=== PATIENT | male | born 1975 | race Two or more races ===

== ENCOUNTER 2019-02-15 19:38 | Inpatient (IN) | payer OTHER ==
[~2019-02-15] VITALS: Ht 185.4 cm; Wt 123.5 kg
[2019-02-15 20:00] LABS: Basophils # (auto) 0.2 uL; Eosinophils # (auto) 0.3 uL; Eosinophils % (auto) 1.7 % (0.0-7.0); Hematocrit 49.1 % (41.0-53.0); Hemoglobin 16.8 g/dL (13.5-17.5); Lymphocytes # (auto) 2.3 uL; Lymphocytes % (auto) 12.9 % (10.0-50.0); Mean Corpuscular Hgb Conc. 34.2 g/dL (32.0-36.0); Mean Corpuscular Volume 87.7 fL (80.0-100.0); Monocytes # (auto) 1.1 uL; Monocytes % (auto) 6.4 % (0.0-12.0); Neutrophils # (auto) 13.7 uL; Nucleated Red Blood Cells % 0.1 %; Platelet Count (auto) 260 10^3/uL (140-450); Red Blood Cells 5.59 10^6/uL (4.5-5.90); Red Cell Distribution Width 12.7 % (11.8-14.3); White Blood Cell 17.5 10^3/uL (4.4-10.8)
[2019-02-15 20:19] LABS: Albumin 3.1 g/dL (3.4-5.0); Calcium 8.4 mg/dL (8.5-10.1); Potassium 4.1 mmol/L (3.5-5.1)
[2019-02-15 20:22] LABS: BUN/Creatinine Ratio 10.5; Bilirubin, Total 1.2 mg/dL (0.2-1.0); Total Protein 7.1 g/dL (6.4-8.2)
[2019-02-15] MEDS ORDERED: cefTRIAXone SOD 1,000 MG VL IM ONE (23:00)
[2019-02-15] MEDS ORDERED: KETOROLAC TROMETH 60MG/2ML VIAL IM ONE (23:00)
[2019-02-16] MEDS ORDERED: SODIUM CHLORIDE 0.9% 1,000 ML IV ONE (00:15)
[2019-02-16] MEDS ORDERED: KETOROLAC TROMETH 30 MG/ML 1ML VIAL IV ONE (00:15)
[2019-02-16] MEDS ORDERED: cefTRIAXone 1GM/50ML D5W 50 ML IV ONE (00:15)
[2019-02-16] MEDS ORDERED: MORPHINE SULFATE 4 MG/ML SYR/VIAL IV ONE (01:00)
[2019-02-16] MEDS ORDERED: IOHEXOL 300 MG/ML 100ML BOTTLE IJ ONE (01:14)
[2019-02-16] MEDS ORDERED: ONDANSETRON HCL 4 MG/2 ML VIAL IV PRN (03:30)
[2019-02-16] MEDS ORDERED: ACETAMINOPHEN 325 MG TAB PO PRN (03:30)
[2019-02-16] MEDS ORDERED: DEXTROSE (50%) 50ML SYRG IV PRN ×2 (03:30→10:00)
[2019-02-16] MEDS ORDERED: DOCUSATE SOD 100 MG CAP PO PRN (03:30)
[2019-02-16] MEDS ORDERED: LORazepam 0.5 MG TAB PO PRN (03:30)
[2019-02-16] MEDS ORDERED: MORPHINE SULFATE 4 MG/ML SYR/VIAL IV PRN (03:30)
[2019-02-16 04:05] VITALS: BP 133/89
[2019-02-16] MEDS: ACCU-CHEK COMFORT CURVE STRIP VI SCH ×5 (04:33→21:47)
[2019-02-16] MEDS: InsuLIN REG 1unit/0.01ml Soln (100units/ml) SC SCH ×5 (04:49→21:52)
[2019-02-16] MEDS: CLINDAMYCIN 600MG IV 50 ML IV SCH ×4 (04:54→23:54)
[2019-02-16] MEDS: HYDROcodone-ACET 5/325MG TAB PO PRN ×4 (04:58→21:52)
[2019-02-16 05:00] VITALS: BP_SYST 113; BP_SYST 133; BP_SYST 134; BP_DIAS 50; BP_DIAS 74; BP_DIAS 89
--- NOTE | 2019-02-16 05:04 | NUR ---
MS admit from ER LLOYD,JULIA MCCLELLAN admitted to tele/MS after SBAR received. Patient oriented to KANDY COOMBS, RN primary RN, unit, room, bed, and unit policies regarding patient care and visiting hours. Patient weighed by bedscale and encouraged to call if they need something. All questions and concerns addressed, patient verbalized understanding. Note: PATIENT IS ALERT AND ORIENTED X4, C/O BACK PAIN DUE TO DEVELOPING ABSCESS ON MID BACK. PATIENT HAS A BUMP ON MIDBACK THAT IS NOT OPEN YET, UNABLE TO SEND WOUND CULTURE. PATIENT WITH PNDING SURGICAL CONSULT FOR I & D.
--- NOTE | 2019-02-16 07:32 | NUR ---
Opening Note Assumed pt care from NOC nurse Pt is a/ox4 with no s/s of distress or SOB. Pt is currently laying in bed with no complaints at this time. Assessed pt's back; abscess noted on pt's right upper shoulder blade. No drainage noted, and site is warm to touch and pink in color. Discussed POC with pt and the pending surgical consultation for drainage; pt verbalized understanding. Safety measures maintained with call light within reach, bed in lowest position and side rails up. Will continue to monitor for changes q1hr and prn.
[2019-02-16 07:48] LABS: Basophils # (auto) 0.1 uL; Basophils % (auto) 0.6 % (0.0-2.0); Eosinophils # (auto) 0.3 uL; Eosinophils % (auto) 1.6 % (0.0-7.0); Hematocrit 45.1 % (41.0-53.0); Hemoglobin 15.5 g/dL (13.5-17.5); Lymphocytes # (auto) 1.9 uL; Lymphocytes % (auto) 11.1 % (10.0-50.0); Mean Corpuscular Hemoglobin 30.1 pg (28.0-32.0); Mean Corpuscular Hgb Conc. 34.4 g/dL (32.0-36.0); Mean Corpuscular Volume 87.6 fL (80.0-100.0); Monocytes # (auto) 1.3 uL; Monocytes % (auto) 7.3 % (0.0-12.0); Neutrophils # (auto) 13.7 uL; Neutrophils % (auto) 79.4 % (37.0-80.0); Platelet Count (auto) 237 10^3/uL (140-450); Red Blood Cells 5.15 10^6/uL (4.5-5.90); White Blood Cell 17.2 10^3/uL (4.4-10.8)
[2019-02-16 08:10] LABS: BUN/Creatinine Ratio 14.1; Calcium 7.8 mg/dL (8.5-10.1); Potassium 3.7 mmol/L (3.5-5.1)
[2019-02-16 09:28] VITALS: BP 122/57
--- NOTE | 2019-02-16 09:46 | NUR ---
DR WATKINS AT BEDSIDE MD TO SEE PT
[2019-02-16] MEDS ORDERED: metFORMIN HYDROCHLORIDE 500 MG TAB PO ONE (10:00)
--- NOTE | 2019-02-16 10:11 | NUR ---
Wound Culture Sent to Micro
[2019-02-16 14:11] VITALS: BP 131/69
[2019-02-16 16:39] VITALS: BP 125/66
[2019-02-16] MEDS: metFORMIN HYDROCHLORIDE 500 MG TAB PO SCH (17:19)
[2019-02-16 22:19] VITALS: BP 108/61
[2019-02-17 05:46] VITALS: BP 101/60
[2019-02-17] MEDS: CLINDAMYCIN 600MG IV 50 ML IV SCH ×2 (05:54→13:08)
[2019-02-17 06:23] LABS: Basophils # (auto) 0 uL; Basophils % (auto) 0.3 % (0.0-2.0); Eosinophils # (auto) 0.3 uL; Eosinophils % (auto) 2.3 % (0.0-7.0); Hematocrit 46.2 % (41.0-53.0); Hemoglobin 15.8 g/dL (13.5-17.5); Lymphocytes # (auto) 1.8 uL; Lymphocytes % (auto) 12.6 % (10.0-50.0); Mean Corpuscular Hemoglobin 29.9 pg (28.0-32.0); Mean Corpuscular Hgb Conc. 34.1 g/dL (32.0-36.0); Mean Corpuscular Volume 87.7 fL (80.0-100.0); Monocytes # (auto) 0.8 uL; Monocytes % (auto) 5.5 % (0.0-12.0); Neutrophils # (auto) 11.4 uL; Neutrophils % (auto) 79.3 % (37.0-80.0); Platelet Count (auto) 286 10^3/uL (140-450); Red Blood Cells 5.27 10^6/uL (4.5-5.90); White Blood Cell 14.5 10^3/uL (4.4-10.8)
[2019-02-17 06:25] LABS: INR 1.12 (0.9-1.15)
[2019-02-17] MEDS: ACCU-CHEK COMFORT CURVE STRIP VI SCH ×2 (06:29→11:30)
[2019-02-17] MEDS: InsuLIN REG 1unit/0.01ml Soln (100units/ml) SC SCH ×2 (06:29→12:28)
[2019-02-17 06:31] LABS: Calcium 8.1 mg/dL (8.5-10.1); Potassium 3.9 mmol/L (3.5-5.1)
[2019-02-17 06:33] LABS: BUN/Creatinine Ratio 17.5
[2019-02-17 08:00] VITALS: BP 109/65
--- NOTE | 2019-02-17 08:55 | NUR ---
ASSUMED CARE OF PT JUST WAKING. APPROPRIATE, DENIES DISCOMFORT. LARGE BOIL TYPE AREA MIDLINE ABOVE SHOULDER BLADES PALPATED HARD TO TOUCH CENTER OOZING SMALL AMOUNT. WHITE BOARD UPDATED. IV SITE BENIGN AND PATENT.
[2019-02-17] MEDS ORDERED: cefTRIAXone 1GM/50ML D5W 50 ML IV SCH (09:00)
--- NOTE | 2019-02-17 09:45 | NUR ---
DR. SCHMIDT AT BEDSIDE. ABSCESS OOZING COPIOUS AMOUNT OF THICK BROWN BLOOD TINGED FLUID. EXPRESSED AREA AND APPLIED GAUZE DRESSING.
[2019-02-17] MEDS: metFORMIN HYDROCHLORIDE 500 MG TAB PO SCH (09:54)
[2019-02-17 12:40] VITALS: BP 109/65
--- NOTE | 2019-02-17 16:14 | NUR ---
ss consult Per ss consult assist patient with PCP prior to discharge. Yen Gregg to see patient for PCP. Addendum: 02/17/19 at 1615 by Yen RAPP Amended: Links added.
--- NOTE | 2019-02-17 16:34 | NUR ---
IV REMOVED, CANNULA INTACT. SIMONA PATRICK SEES PT BEFORE DC HOME WITH INSTRUCTIONS AND PRESCRIPTIONS.
== END 2019-02-17 16:15 | disposition home or self-care (01) | DRG 383 ==
LOC: ER 19:38 → CENTRAL 19:39
PROVIDERS: ADMIT Hospitalist; ATTEND Internal Medicine
DX: L02.212 Cutaneous abscess of back [any part, except buttock and flank] (principal); E11.65 Type 2 diabetes mellitus with hyperglycemia; E66.01 Morbid (severe) obesity due to excess calories; R17 Unspecified jaundice; E44.1 Mild protein-calorie malnutrition; E87.1 Hypo-osmolality and hyponatremia; D72.829 Elevated white blood cell count, unspecified; L03.90 Cellulitis, unspecified
CPT/HCPCS: 36415; 71260; 80048; 80053; 82010; 82962; 83036; 83605; 85025; 85610; 87040; 87077; 87186; 87205; 96365; G0378; J0696; J1815; J1885; J3490